=== PATIENT | male | born 1990 | race Caucasian/White ===

== ENCOUNTER 2017-09-07 16:30 | Emergency (ER) | payer SELFPAY ==
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
[2017-09-07] MEDS ORDERED: Meclizine TAB* 12.5 MG PO ONE (18:04)
[2017-09-07] MEDS ORDERED: NS 0.9% 1000 ML* 1,000 ML IV ONE (18:04)
[2017-09-07 18:22] LABS: Hematocrit 46 % (42-52); Hemoglobin 15.2 g/dl (14.0-18.0); Mean Corpuscular HGB Conc 33 g/dl (31-36); Mean Corpuscular Hemoglobin 29 pg (27-31); Mean Corpuscular Volume 86 fL (80-94); Mean Platelet Volume 8 um3 (7.4-10.4); Platelet Count 322 10^3/ul (150-450); Red Blood Count 5.28 10^6/ul (4.0-5.4); Red Cell Distribution Width 14 % (10.5-15); White Blood Count 6.2 10^3/ul (3.5-10.8)
[2017-09-07 18:37] LABS: EGFR Non-African American 71.6 (>60)
[2017-09-07] MEDS ORDERED: Iohexol 350* (CONTRAST) 500 ML MDV IV ONE (18:47)
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
[2017-09-07] MEDS ORDERED: M eclizine 25 MG # 6 TABS 25 MG PAK PO ONE (20:10)
[2017-09-07] MEDS ORDERED: O ndansetron ODT 4MG 2TAB PRPK 4 MG PAK PO ONE (20:17)
[2017-09-07] MEDS ORDERED: Ondansetron ODT TAB* 4 MG ONE (20:20)
[2017-09-07 20:28] VITALS: BP 136/68
[2017-09-07] MEDS ORDERED: O ndansetron ODT 4MG 2TAB PRPK 4 MG PAK PO SCH (21:00)
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
== END 2017-09-07 20:28 | disposition home or self-care (01) ==
LOC: ED 16:30
DX: S06.0X9A Concussion with loss of consciousness of unspecified duration, initial encounter (principal); V89.2XXA Person injured in unspecified motor-vehicle accident, traffic, initial encounter; Y92.9 Unspecified place or not applicable
CPT/HCPCS: 36415; 70450; 70496; 70498; 72125; 80053; 85027; 96360; 96374; 99282; A9270-GY; Q9967